=== PATIENT | male | born 1990 | race African-American/Black ===

== ENCOUNTER 2019-05-02 19:36 | Emergency (ER) | payer OTHER, SELFPAY ==
[2019-05-02 20:15] LABS: Bilirubin Small (Negative); Blood, Urine Large (Negative); Clarity Cloudy (Clear); Glucose, Urine (Dipstick) Negative (Negative); Leukocyte Negative (Negative); Nitrite Negative (Negative); Protein, Urine (Dipstick) > or equal to 300 mg/dL (Neg-Trace); Urobilinogen 0.2 mg/dL (Less than 2)
[2019-05-02] MEDS ORDERED: Sodium Chloride 0.9% 1,000 ML ONE (20:15)
[2019-05-02] MEDS ORDERED: Ketorolac Tromethamine 30 MG/ML VIAL ONE (20:15)
[2019-05-02] MEDS ORDERED: Ondansetron PF 4 MG/2 ML Vial ONE (20:15)
[2019-05-02 20:18] LABS: Bacteria/HPF 1+ HPF (None Seen); RBC/HPF Greater than 50 HPF (0-3); Squamous Epithelial 0-3 HPF (0-3); WBC/HPF None Seen HPF (0-3)
--- NOTE | 2019-05-02 20:36 | CT ---
CT OF THE ABDOMEN AND PELVIS WITHOUT CONTRAST: 05/02/19 INDICATION: Right sided abdominal pain with hematuria. COMPARISON: None. FINDINGS: There is mild right hydronephrosis. There is degenerative changes of the right ureter. There is a 4.9 mm stone just passed the right UVJ within the posterior bladder. The bladder is partially decompress ed. No renal calculus is evident. Lung bases, unopacified liver, pancreas, adrenal glands, and spleen are unremarkable appearing. Normal appendix seen in the right lower quadrant. Unopacified large and small bowel are unremarkable appearing. No definite acute osseous abnormality is evident. IMPRESSION: 4.9 mm stone within the posterior bladder consistent with a recently passed stone. There is mild resi dual right sided hydronephrosis. POS: BH
[2019-05-02 20:38] LABS: Hemoglobin 14.3 g/dL (14.0-18.0); Mean Corpuscular HGB CONC 31.9 g/dL (32.0-36.0); Mean Corpuscular Hemoglobin 27.4 pg (27.0-31.0); Mean Corpuscular Volume 85.8 fL (78.0-98.0); Mean Platelet Volume 8.6 fL (7.4-10.4); Platelet Count 216 thou/uL (130-400); RBC Distribution Width 12.3 % (11.5-14.5); Red Blood Cell (RBC) Count 5.22 mill/uL (4.70-6.10); White Blood Cell (WBC) Count 8.8 thou/uL (4.8-10.8)
[2019-05-02 20:41] LABS: ALT (SGPT) 81 U/L (8-55); AST (SGOT) 37 U/L (5-34); Albumin 4.4 g/dL (3.5-5.0); Alkaline Phosphatase 89 U/L (40-150); Anion Gap 18 mmol/L (10-20); BUN (Urea Nitrogen) 9 mg/dL (8.9-20.6); Bilirubin, Total 0.2 mg/dL (0.2-1.2); Calc. Creatinine Clearance 0 mL/min (70-130); Calcium 9.7 mg/dL (7.8-10.44); Carbon Dioxide 21 mmol/L (22-29); Chloride 107 mmol/L (98-107); Estimated GFR-MDRD Greater than 90; Globulin 3.4 g/dL (2.4-3.5); Glucose 123 mg/dL (70-105); Lipase 27 U/L (8-78); Potassium 3.7 mmol/L (3.5-5.1); Protein, Total 7.8 g/dL (6.0-8.3); Sodium 142 mmol/L (136-145)
[2019-05-02 20:51] LABS: Band 2 % (5-11); Eosinophils 7 % (0-10); Lymphocytes 34 % (21-51); MDiff Complete? YES; Monocytes 6 % (0-10); Neutrophil 50 % (42-75); Platelet Morphology Comment Appears Adequate; RBC Morphology Normal
[2019-05-02] MEDS ORDERED: Cephalexin 250 MG CAP ONE (20:52)
== END 2019-05-02 20:50 | disposition home or self-care (01) ==
LOC: NAV ERS 19:36
DX: N13.2 Hydronephrosis with renal and ureteral calculous obstruction (principal); E66.9 Obesity, unspecified; F17.210 Nicotine dependence, cigarettes, uncomplicated
CPT/HCPCS: 74176; 80053; 81003; 81015; 83690; 84443; 84484; 85025; 93005; 96374; 96375; J1885; J2405; J7050

== ENCOUNTER 2021-01-06 05:43 | Emergency (ER) | payer SELFPAY ==
[2021-01-06] MEDS ORDERED: Ibuprofen 200 MG TAB ONE (06:53)
== END 2021-01-06 07:03 | disposition home or self-care (01) ==
LOC: NAV ERS 05:43
DX: S63.501A Unspecified sprain of right wrist, initial encounter (principal); F17.210 Nicotine dependence, cigarettes, uncomplicated; F17.290 Nicotine dependence, other tobacco product, uncomplicated; E66.9 Obesity, unspecified; W22.8XXA Striking against or struck by other objects, initial encounter
CPT/HCPCS: 29125

== ENCOUNTER 2022-11-25 22:23 | Emergency (ER) | payer OTHER, SELFPAY ==
[2022-11-26] MEDS ORDERED: HYDROcodone/Acetaminophen 10/325 mg Tablet ONE ×2 (01:57→02:09)
== END 2022-11-26 02:25 | disposition home or self-care (01) ==
LOC: NAV ERS 22:23
DX: S82.141A Displaced bicondylar fracture of right tibia, initial encounter for closed fracture (principal); E66.9 Obesity, unspecified; F17.210 Nicotine dependence, cigarettes, uncomplicated; F17.220 Nicotine dependence, chewing tobacco, uncomplicated; W01.0XXA Fall on same level from slipping, tripping and stumbling without subsequent striking against object, initial encounter; Y93.61 Activity, american tackle football

== ENCOUNTER 2023-11-19 21:04 | Emergency (ER) | payer SELFPAY ==
[2023-11-19] MEDS ORDERED: traMADol HCl 50 MG TAB ONE (21:28)
[2023-11-19] MEDS ORDERED: AMOXicillin 250 MG CAP ONE (21:28)
[2023-11-19] MEDS ORDERED: cloNIDine 0.2 MG TAB ONE (21:50)
[2023-11-19] MEDS ORDERED: hydrALAZINE 20 MG/ML VIAL ONE (23:15)
[2023-11-19 23:19] LABS: #Basophils 0.2 thou/uL (0.0-0.2); #Eosinphils 0.5 thou/uL (0.0-0.7); #Lymphocytes 1.9 thou/uL (1.20-3.40); #Monocytes 0.6 thou/uL (0.11-0.59); %Basophils 2.4 % (0.0-1.0); %Eosinophils 5.9 % (0.0-10.0); %Monocytes 7.8 % (0.0-10.0); %Neutrophils 60.9 % (42.0-75.0); Hematocrit 39.6 % (42.0-52.0); Hemoglobin 13.6 g/dL (14.0-18.0); Mean Corpuscular HGB CONC 34.4 g/dL (32.0-36.0); Mean Corpuscular Hemoglobin 29.5 pg (27.0-31.0); Mean Corpuscular Volume 85.7 fl (78.0-98.0); Mean Platelet Volume 9.2 fL (7.4-10.4); Platelet Count 210 10x3/uL (130-400); RBC Distribution Width 11.8 % (11.5-14.5); Red Blood Cell (RBC) Count 4.61 mill/uL (4.70-6.10); White Blood Cell (WBC) Count 8.1 10x3/uL (4.8-10.8)
[2023-11-19 23:33] LABS: ALT (SGPT) 32 U/L (8-55); AST (SGOT) 20 U/L (5-34); Albumin 4.1 g/dL (3.5-5.0); Alkaline Phosphatase 66 U/L (40-110); Anion Gap 10 mmol/L (10-20); BUN (Urea Nitrogen) 12 mg/dL (8.9-20.6); Bilirubin, Total 0.3 mg/dL (0.2-1.2); Calc. Creatinine Clearance 0 mL/min (70-130); Calcium 8.9 mg/dL (7.8-10.44); Carbon Dioxide 25 mmol/L (22-29); Chloride 105 mmol/L (98-107); Estimated GFR 118; Globulin 2.7 g/dL (2.4-3.5); Glucose 98 mg/dL (70-105); Protein, Total 6.8 g/dL (6.0-8.3); Sodium 136 mmol/L (136-145)
== END 2023-11-19 23:59 | disposition home or self-care (01) ==
LOC: NAV ERS 21:04
DX: K02.9 Dental caries, unspecified (principal); I10 Essential (primary) hypertension; E66.9 Obesity, unspecified; F17.220 Nicotine dependence, chewing tobacco, uncomplicated
CPT/HCPCS: 80053; 85025; 96374; J0360